=== PATIENT | female | born 1995 | race Caucasian/White ===

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

== ENCOUNTER 2017-08-18 11:27 | Emergency (ER) | END 2017-08-18 12:35 | disposition left against medical advice (07) ==

== ENCOUNTER 2017-09-21 19:12 | Emergency (ER) | END 2017-09-21 23:08 | disposition home or self-care (01) ==